=== PATIENT | male | born 1960 | race Caucasian/White ===

== ENCOUNTER 2021-01-19 14:29 | Emergency (ER) | payer BC ==
[~2021-01-19] VITALS: Ht 182.9 cm; Wt 97.7 kg
[2021-01-19 14:31] VITALS: BP 137/92
--- NOTE | 2021-01-19 15:51 | REP ---
INDICATION: trauma. COMPARISON: No comparison study.. TECHNIQUE: Four views of the left foot FINDINGS: Four views of the left foot demonstrate normal bones, joints, and soft tissues. No fracture or subluxation is seen. No opaque foreign body noted. IMPRESSION: Negative left foot series. <Electronically signed by Job Maurer > 01/19/21 [id number]
--- NOTE | 2021-01-19 15:53 | REP ---
INDICATION: trauma. COMPARISON: None. TECHNIQUE: Four views of the left ankle are provided. FINDINGS: Four views of the left ankle demonstrate mild medial malleolar spurring. Ankle mortise is intact. Joint spaces are preserved. AP and oblique views demonstrate a small calcific density between the medial malleolar tip and the lateral surface of the talus which may be an avulsion chip fracture. This should be correlated with area of tenderness to palpation and pain. IMPRESSION: Possible chip fracture at the lateral aspect of the ankle, either the lateral surface of the talus or the lateral malleolar tip. Mild distal tibial spurring. Otherwise negative. <Electronically signed by Job Maurer > 01/19/21 [id number]
[2021-01-19] MEDS ORDERED: ACETAMINOPHEN 500 MG TAB PO ONE (19:05)
[2021-01-19] MEDS ORDERED: BOOSTRIX/ADACEL VACCINE (DIPHTH/PERTUSS/ACELL/TETANUS) 0.5ML SYR IM ONE (19:55)
== END 2021-01-19 20:20 | disposition left against medical advice (07) ==
LOC: M ED 14:29
DX: S82.92XA Unspecified fracture of left lower leg, initial encounter for closed fracture (principal); S40.022A Contusion of left upper arm, initial encounter; S50.02XA Contusion of left elbow, initial encounter; S90.32XA Contusion of left foot, initial encounter; W20.8XXA Other cause of strike by thrown, projected or falling object, initial encounter; Y92.89 Other specified places as the place of occurrence of the external cause; Z88.8 Allergy status to other drugs, medicaments and biological substances

== ENCOUNTER 2023-08-23 06:51 | Day surgery (SDC) | payer BC ==
[~2023-08-23] VITALS: Ht 180.3 cm; Wt 95.7 kg
[~2023-08-23 06:51] MED LIST: MELO15TA28 PO; OMEP-173 PO
[2023-08-23] MEDS: NS 1,000 ML IV ONE (07:29)
[2023-08-23] MEDS ORDERED: LIDOCAINE 2% 100MG/5ML SDV (FOR ANES.) As Ordered ONE (08:07)
[2023-08-23] MEDS ORDERED: propofoL 200 MG/20 ML VIAL As Ordered ONE (08:07)
[2023-08-23 08:21] VITALS: TEMP 97.6
[2023-08-23 08:45] VITALS: BP 128/87; O2SAT 100
== END 2023-08-23 08:58 | disposition home or self-care (01) ==
LOC: M OPP 06:51
PROVIDERS: ATTEND Surgery
DX: Z12.11 Encounter for screening for malignant neoplasm of colon (principal); D12.2 Benign neoplasm of ascending colon; K57.30 Diverticulosis of large intestine without perforation or abscess without bleeding; K64.0 First degree hemorrhoids; Z79.899 Other long term (current) drug therapy; Z88.5 Allergy status to narcotic agent; Z88.8 Allergy status to other drugs, medicaments and biological substances